=== PATIENT | female | born 1965 | race Caucasian/White ===

== ENCOUNTER 2024-05-19 11:27 | Outpatient (CLI) | payer BC | END 2024-05-19 11:28 | disposition home or self-care (01) | LOC: BURRAD 11:27 | PROVIDERS: ATTEND Physician Assistant | DX: M54.41 Lumbago with sciatica, right side (principal); M54.42 Lumbago with sciatica, left side; M47.816 Spondylosis without myelopathy or radiculopathy, lumbar region | CPT/HCPCS: 72100 ==